=== PATIENT | male | born 1995 | race Caucasian/White ===

== ENCOUNTER 2018-05-24 05:55 | Day surgery (SDC) | payer BC ==
[~2018-05-24] VITALS: Ht 180.3 cm; Wt 70.3 kg
[~2018-05-24 05:55] MED LIST: CETI-101 PO; DELSYM; MVI PO; PRED20TA PO
[2018-05-24] MEDS ORDERED: LevALBUTEROL HCL 1.25 MG/0.5 ML *CONC.* VIAL.NEB (XOPENEX CONC.) INH ONE ×4 (06:45→10:45)
[2018-05-24] MEDS ORDERED: LR 1,000 ML IV SCH (08:46)
[2018-05-24] MEDS ORDERED: MEPERIDINE HCL/PF 25 MG/ML DISP.SYRIN IVP PRN (09:00)
[2018-05-24] MEDS ORDERED: HYDROmorphone 2 MG/ML VIAL IVP PRN ×2 (09:00)
[2018-05-24] MEDS ORDERED: BENZOCAINE/MENTHOL 1 EACH LOZENGE MM PRN (09:00)
[2018-05-24] MEDS ORDERED: HYDROmorphone 1 MG INJ. 1 MG/ML AMPUL IVP PRN (09:00)
[2018-05-24] MEDS ORDERED: PHENOL/MENTHOL 14.5 MG LOZENGE MM SCH (09:00)
[2018-05-24 14:31] VITALS: BP_SYST 117
== END 2018-05-24 12:45 | disposition home or self-care (01) ==
LOC: SMU 05:55 → SDS 05:55
PROVIDERS: ATTEND Otolaryngology
DX: J34.2 Deviated nasal septum (principal); J32.9 Chronic sinusitis, unspecified; J34.89 Other specified disorders of nose and nasal sinuses; Z80.3 Family history of malignant neoplasm of breast; Z80.42 Family history of malignant neoplasm of prostate; Z83.3 Family history of diabetes mellitus; Z79.899 Other long term (current) drug therapy; Z98.890 Other specified postprocedural states; K21.9 Gastro-esophageal reflux disease without esophagitis; J45.20 Mild intermittent asthma, uncomplicated
CPT/HCPCS: 30140; 30520; 31240; 31255; 31295; 31297; 88305; 88311; 94640; A4649; C1726; J7120; J7612